=== PATIENT | male | born 1970 | race Caucasian/White ===

== ENCOUNTER 2019-03-01 11:45 | Day surgery (SDC) | payer OTHER ==
[~2019-03-01] VITALS: Ht 188 cm; Wt 102.6 kg
[~2019-03-01 11:45] MED LIST: LEVO50TA7 PO; MERC1POW2 MC; MESA1.2T2 PO
[2019-03-01 12:36] VITALS: Ht 188 cm; Wt 102.6 kg
[2019-03-01] MEDS ORDERED: PROPOFOL 20 ML ONE (13:16)
[2019-03-01] MEDS ORDERED: LIDOCAINE 100 MG SYRINGE ONE (13:16)
[2019-03-01 13:19] VITALS: BP 123/86; PULSE 56; RESP 12
[2019-03-01 15:07] VITALS: BP 116/73; PULSE 63; RESP 20
== END 2019-03-01 16:33 | disposition home or self-care (01) ==
LOC: GIL 11:45
PROVIDERS: ATTEND Internal Medicine Gastroenterology
DX: K64.8 Other hemorrhoids (principal); K51.90 Ulcerative colitis, unspecified, without complications
CPT/HCPCS: 45380; 88305; J2001; Z7610